=== PATIENT | female | born 1975 | race African-American/Black ===

== ENCOUNTER 2022-03-17 00:54 | Inpatient (IN) ==
[2022-03-17] MEDS ORDERED: MORPHINE 2 MG/1 ML SYRINGE ONE (01:40)
[2022-03-17 01:41] LABS: Basophils % 0.3 % (0.0-0.8); Eosinophils # 0.4 10*3/uL (0.0-0.87); Eosinophils % 3.9 % (0.00-10.9); Hematocrit 43.2 VOL% (35.7-47.0); Hemoglobin 13.9 GM/DL (12.0-16.0); Immature Granulocytes % 0.4 %; Immature Granulocytes Absolute 0.04 #; Lymphocytes # 2.8 10*3/uL (1.4-4.0); Lymphocytes % 25.2 % (21.3-54.2); Mean Corpuscular HGB Conc 32.2 GM/DL (32-36); Mean Corpuscular Volume 94.7 FL (87-102); Monocytes # 0.7 10*3/uL (0.11-0.8); Monocytes % 6.3 % (1.7-12.7); Neutrophils % 63.9 % (38.7-73.9); Platelet Count 205 T/CUMM (130-400); Red Blood Count 4.56 MC/CUMM (3.8-5.5); Red Cell Distribution Width 13.7 % (9.3-17.3); White Blood Count 11.1 T/CUMM (4-12)
[2022-03-17] MEDS ORDERED: HEPARIN 5,000 UNIT/1 ML VIAL ONE (01:47)
[2022-03-17] MEDS ORDERED: ASPIRIN 325 MG TABLET ONE (01:47)
[2022-03-17 01:50] LABS: INR 1.2; PT Patient Result 13.4 SECS (10.1-12.1); Partial Thromboplastin Time 36.7 SECS (23.7-32.9)
[2022-03-17] MEDS ORDERED: METOPROLOL TARTRATE 5 MG/5 ML VIAL IV ONE (01:55)
[2022-03-17 01:58] LABS: Alanine Aminotransferase 22 U/L (13-56); Albumin 3.5 G/DL (3.4-5.0); Alkaline Phosphatase 60 U/L (45-117); Aspartate Amino Transferase 18 U/L (0-37); Bilirubin,Total < 0.39 MG/DL (0.20-1.00); Blood Urea Nitrogen 13 MG/DL (7-18); Calcium 9.1 MG/DL (8.5-10.1); Carbon Dioxide 26 MMOL/L (21-32); Chloride 108 MMOL/L (98-107); Glucose 133 MG/DL (74-106); Osmolality,Calculated 278.5 MOS/KG (273-304); Potassium 3.7 MMOL/L (3.5-5.1); Sodium 139 MMOL/L (136-145); Total Protein 7.5 G/DL (6.4-8.2)
[2022-03-17] MEDS ORDERED: ASPIRIN CHEW 81 MG TABLET PO STA (02:06)
[2022-03-17] MEDS ORDERED: HEPARIN 1,000 UNIT/1 ML VIAL IV STA (02:06)
[2022-03-17] MEDS ORDERED: METOPROLOL TARTRATE 5 MG/5 ML VIAL IV STA (02:07)
[2022-03-17] MEDS ORDERED: MORPHINE 2 MG/1 ML SYRINGE IV STA (02:10)
[2022-03-17] MEDS ORDERED: HEPARIN 5,000 UNIT/1 ML VIAL IV STA (02:11)
[2022-03-17] MEDS ORDERED: MIDAZOLAM 2 MG/2 ML VIAL ONE (02:36)
[2022-03-17] MEDS ORDERED: HYDROmorphone 1 MG/1 ML SYRINGE ONE ×2 (02:36→03:10)
[2022-03-17] MEDS ORDERED: HEPARIN/NACL 0.9% 2 UNITS/ML 2,000 UNIT/1,000 ML BAG IV ONE (02:36)
[2022-03-17] MEDS ORDERED: LABETALOL 20 MG/4 ML SYRINGE IV ONE ×2 (02:44→03:03)
[2022-03-17] MEDS ORDERED: MAGNESIUM SULF RIDER 4 GM/100 ML PREMIX IV PRN (03:03)
[2022-03-17] MEDS ORDERED: MAGNESIUM SULF RIDER 2 GM/50 ML PREMIX IV PRN (03:03)
[2022-03-17] MEDS ORDERED: ASPIRIN 325 MG TABLET PO STA (03:16)
[2022-03-17] MEDS ORDERED: ZALEPLON 5 MG CAPSULE PO PRN (03:43)
[2022-03-17] MEDS ORDERED: ONDANSETRON 4 MG/2 ML VIAL IV PRN (03:43)
[2022-03-17] MEDS: SODIUM CHLORIDE 0.9% 1,000 ML IV SCH ×3 (03:50→21:30)
[2022-03-17] MEDS ORDERED: hydrALAZINE 20 MG/1 ML VIAL IV PRN (04:49)
[2022-03-17 05:38] LABS: Risk Ratio 4.3
[2022-03-17] MEDS: LOSARTAN 50 MG TABLET PO SCH (09:14)
[2022-03-17] MEDS: METOPROLOL SUCCINATE XL 50 MG TABLET PO SCH (09:14)
[2022-03-18] MEDS: SODIUM CHLORIDE 0.9% 1,000 ML IV SCH (05:15)
[2022-03-18] MEDS: LOSARTAN 50 MG TABLET PO SCH (09:51)
[2022-03-18] MEDS: METOPROLOL SUCCINATE XL 50 MG TABLET PO SCH (09:51)
[2022-03-18 10:45] LABS: Basophils % 0.3 % (0.0-0.8); Eosinophils # 0.1 10*3/uL (0.0-0.87); Eosinophils % 1.4 % (0.00-10.9); Hematocrit 40.3 VOL% (35.7-47.0); Hemoglobin 12.9 GM/DL (12.0-16.0); Immature Granulocytes % 0.3 %; Immature Granulocytes Absolute 0.03 #; Lymphocytes # 2.4 10*3/uL (1.4-4.0); Mean Corpuscular Volume 95.3 FL (87-102); Mean Platelet Volume 11.2 FL (9.6-12.0); Monocytes # 0.7 10*3/uL (0.11-0.8); Monocytes % 7.1 % (1.7-12.7); Neutrophils % 66.9 % (38.7-73.9); Platelet Count 197 T/CUMM (130-400); Red Blood Count 4.23 MC/CUMM (3.8-5.5); Red Cell Distribution Width 13.9 % (9.3-17.3); White Blood Count 10.2 T/CUMM (4-12)
[2022-03-18 11:00] LABS: Calcium 8.5 MG/DL (8.5-10.1); Osmolality,Calculated 277.4 MOS/KG (273-304)
[2022-03-18 11:55] VITALS: BP 133/83
== END 2022-03-18 12:50 | disposition home or self-care (01) | DRG 192 ==
LOC: N.ED 00:54 → N.EDINP 02:35 → N.CC 02:50 → N.TELES 03:05
PROVIDERS: ADMIT Internal Medicine Cardiovascular Disease; ATTEND Internal Medicine Cardiovascular Disease
PROC: CLCCHCL (ICD-10-PCS; 2022-03-17 03:00)